=== PATIENT | female | born 2000 | race Caucasian/White ===

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

== ENCOUNTER 2021-01-05 00:39 | Emergency (ER) | payer MEDICAID ==
[~2021-01-05] VITALS: Ht 165.1 cm; Wt 68.9 kg
[2021-01-05 00:50] VITALS: Ht 165.1 cm; Wt 68.9 kg
[2021-01-05] MEDS ORDERED: ZOF4 PO (02:22)
[2021-01-05] MEDS ORDERED: LOMOTIL1 TAB PO (02:22)
[2021-01-05 02:31] VITALS: BP 110/70
== END 2021-01-05 02:31 | disposition home or self-care (01) ==
LOC: ED 00:39
DX: A08.4 Viral intestinal infection, unspecified (principal); Z20.822 Contact with and (suspected) exposure to COVID-19
CPT/HCPCS: J1885; Q0162; U0003